=== PATIENT | male | born 1990 | race Caucasian/White ===

== ENCOUNTER 2021-04-21 15:16 | Emergency (ER) | payer OTHER ==
[2021-04-21 15:24] VITALS: BP 104/59; PULSE 100; TEMP 98.3; BMI 26.9
[2021-04-21] MEDS ORDERED: KETOROLAC TROMETHAMINE 30 MG/1 ML VIAL IM ONE (15:53)
[2021-04-21] MEDS ORDERED: KETOROLAC TROMETHAMINE 30 MG/1 ML VIAL ONE (15:58)
== END 2021-04-21 16:05 | disposition home or self-care (01) ==
LOC: JERFT 15:16
PROC: 3E0233Z Introduction of Anti-inflammatory into Muscle, Percutaneous Approach (ICD-10-PCS; principal; 2021-04-21)
DX: M54.50 Low back pain, unspecified (principal)
CPT/HCPCS: 96372; 99284-25

== ENCOUNTER 2021-04-22 17:46 | Emergency (ER) | payer OTHER ==
[2021-04-22 18:10] VITALS: BP 112/64; PULSE 76; TEMP 98; BMI 27.6
[2021-04-22] MEDS ORDERED: KETOROLAC TROMETHAMINE 30 MG/1 ML VIAL IM ONE (19:30)
[2021-04-22] MEDS ORDERED: KETOROLAC TROMETHAMINE 30 MG/1 ML VIAL ONE (19:38)
[2021-04-22] MEDS ORDERED: NAPROXEN 500 MG TABLET PO ONE (19:39)
[2021-04-22] MEDS ORDERED: NAPROXEN 500 MG TABLET ONE (19:42)
[2021-04-22 19:45] LABS: EPI CELLS 12 /uL (0-25.1); HYALINE CASTS 1 /uL (0-3.1); PH,URINE 6.5 (5.0-8.0); URINE APPEARANCE CLEAR; URINE BACTERIA 88 /uL (0-1359); URINE BILIRUBIN NEGATIVE (NEGATIVE); URINE COLOR YELLOW; URINE GLUCOSE (UA) TRACE (NEGATIVE); URINE KETONE TRACE (NEGATIVE); URINE LEUK ESTERASE TRACE (NEGATIVE); URINE NITRITE NEGATIVE (NEGATIVE); URINE PROTEIN 2+ (NEGATIVE); URINE RBC 1 /uL (0-23.9); URINE WBC 23 /uL (0-25.8)
== END 2021-04-22 20:08 | disposition home or self-care (01) ==
LOC: JERFT 17:46
DX: M62.830 Muscle spasm of back (principal)
CPT/HCPCS: 36415; 81003; 87086; 87491; 87591; 99283-25

== ENCOUNTER 2022-05-23 18:55 | Emergency (ER) | payer OTHER ==
[2022-05-23 18:58] VITALS: BP 112/71; PULSE 63; RESP 18; TEMP 98.4; BMI 29.5
[2022-05-23] MEDS ORDERED: CYCLOBENZAPRINE HCL 10 MG TABLET (FP) PO ONE (20:27)
[2022-05-23] MEDS ORDERED: ACETAMINOPHEN 325 MG TABLET (FP) PO ONE (20:27)
[2022-05-23] MEDS ORDERED: ACETAMINOPHEN 325 MG TABLET (FP) ONE (20:29)
[2022-05-23] MEDS ORDERED: CYCLOBENZAPRINE HCL 10 MG TABLET (FP) ONE (20:29)
== END 2022-05-23 20:33 | disposition home or self-care (01) ==
LOC: JERFT 18:55
DX: M54.50 Low back pain, unspecified (principal); V49.50XA Passenger injured in collision with unspecified motor vehicles in traffic accident, initial encounter
CPT/HCPCS: 99283-25